=== PATIENT | male | born 1950 | race Caucasian/White ===

== ENCOUNTER 2021-09-29 12:58 | Emergency (ER) | payer MEDICARE, OTHER, SELFPAY ==
--- NOTE | ~2021-09-29 | XR_ITS ---
EXAMINATION: XR SHOULDER, RIGHT CLINICAL INFORMATION: Right shoulder pain status post fall. COMPARISON: None TECHNIQUE: Pre and post reduction views of the right shoulder were obtained. FINDINGS: The first image shows malalignment of the right glenohumeral joint. The post reduction view shows anatomic alignment of the right glenohumeral joint with mild to moderate degenerative changes. No definitive acute fracture is seen. The right ribs appear intact. There is an incidental mass overlying the right upper lobe medially measuring approximate 5.7 x 5.5 cm. XR/XR shoulder RT min 2V IMPRESSION: 1. Right glenohumeral dislocation with return to anatomic alignment status post reduction. Mild to moderate degenerative joint changes are seen in the right shoulder without overt acute fracture. 2. Incidental mass overlying of the right upper lobe. This is concerning for malignancy. Further evaluation with a chest CT scan is recommended.
--- NOTE | 2021-09-29 13:15 | ED_ITS ---
HPI - General Adult General Chief complaint: Fall Stated complaint: fall, ?dislocated shoulder Time Seen by Provider: 09/29/21 13:09 Source: patient, EMS and RN notes reviewed Mode of arrival: EMS Limitations: no limitations History of Present Illness HPI narrative: 71-year-old male with past medical history of throat CA, hypertension, depression, hyperlipidemia is here after sustaining fall. Patient reports that he was walking in the rain when he slipped and fell towards the right side. Patient denies hitting head or any other parts of his body except for his right shoulder. Patient reports to have severe right shoulder pain. 06/29. Patient denies any nausea, vomiting. Denies any presyncope or syncope. Denies any chest pain or palpitations. Patient reports that this was a mechanical fall after slipping in the rain. Patient denies any neurological symptoms. Onset (ago): minute(s) Location: right and upper extremity Radiation: non-radiation Severity: moderate Quality: sharp Pain Consistency: constant Relieving factors: immobilization Exacerbating factors: movement Related Data Previous Rx's Medication Instructions Recorded cyclobenzaprine 10 mg tablet 10 mg PO BID PRN #10 tab 09/29/21 ibuprofen 600 mg tablet 600 mg PO Q8H PRN #20 tab 09/29/21 Allergies Allergy/AdvReac Type Severity Reaction Status Date / Time No Known Allergies Allergy Verified 09/29/21 13:16 Review of Systems Review of Systems: Constitutional : No Weight loss, No Fever, No Chills, No Night Sweats, No Fatigue, No Malaise ENT/Mouth : No Hearing loss, No Ear Pain, No Nasal Congestion, No Sinus Pain, No Hoarseness, No sore throat, No Rhinorrhea, No Swallowing Difficulty Eyes: No Eye Pain, No Swelling, No Redness, No Foreign Body, No Discharge, No Vision Changes Cardiovascular : No Chest Pain, No SOB, No Dyspnea on Exertion, No Orthopnea, No Edema, No Palpitations Respiratory : No Cough, No Sputum, No Wheezing, No Smoke Exposure, No Dyspnea Gastrointestinal : No Nausea, No Vomiting, No Diarrhea, No Constipation, No abdominal Pain, No Hematochezia, No Melena Genitourinary : no irregular bleeding, No Dysuria, No Urinary Frequency, No Hematuria, No Urinary Incontinence, No Urgency, No Flank Pain, No Urinary Flow Changes, No Hesitancy Musculoskeletal : joint pain, right shoulder No Myalgias, Joint Swelling Skin : No Skin Lesions, No rash Neuro : No Weakness, No Numbness, No Paresthesias, No Loss of Consciousness, No Dizziness, No Headache Yes all other systems are reviewed and are negative PMFSH Social History Social History Alcohol intake: current Patient Tobacco Use Status: Never used Tobacco Use of substances other than those prescribed or required for medical reasons: No Advance Directives: No Advance Directives Information Provided: Yes Physical Exam Vital Signs: Vital Signs: Last Vital Signs Temp 98.3 F 09/29/21 13:18 Pulse 58 09/29/21 13:58 Resp 18 09/29/21 13:58 BP 153/55 H 09/29/21 13:58 Pulse Ox 97 09/29/21 13:58 BMI result Body Mass Index 24.0 Const: General: healthy appearing, no acute distress and well developed Nutritional Appearance: well nourished Orientation/consciousness: patient oriented x3 HENMT: Head: Yes normal to inspection, Yes normocephalic and Yes atraumatic Face and sinus: Yes normal facial exam Mouth: Normal oral and palatal mucosa present Throat: Yes posterior oropharynx normal, Yes tonsils normal and Yes uvula midline Eyes: General: appearance normal, both eyes and all related structures Neck: Neck: Yes full ROM, Yes trachea midline and Yes other ( post trache stoma, pink no redness no obstruction) Thyroid: Thyroid normal Resp: Effort & Inspection: normal respiratory effort, able to speak in complete sentences, no tracheal deviation and symmetric chest movement Auscultation: clear to auscultation bilaterally Cardio: Jugular venous distension: no JVD Rate: regular rate Heart sounds: S1 normal heart sound present, S2 normal heart sound present, no gallops and no murmurs GI: Inspection: Yes normal to inspection and No distended Palpation (GI): Soft to palpation, not firm, nontender and No hepatosplenomegaly present Auscultation: normal bowel sounds : General: Yes no CVA tenderness Back/Spine/Pelvis: Back: no CVA tenderness Skin: General skin exam: elasticity normal, turgor normal and dry skin Neuro: General: patient oriented x3 Extrem: Right upper extremity: normal capillary refill and shoulder/upper arm ( right shoulder pain status post fall) Details: tenderness and swelling; No no cyanosis Left upper extremity: normal to inspection, full ROM and normal c apillary refill Psych: Appearance: grossly normal Mental Status: mental status grossly normal Speech and movement: Normal speech and movement present Affect: normal affect Attitude: cooperative Thought process: Normal thought process present Thought content: Normal thought content present Insight: Good insight present (Psych) Judgement: Good judgement present (Psych) Course Course Course Narrative: 71-year-old male with past medical history of throat CA, hypertension, depression, hypercholesteremia is here today after sustaining a fall. Patient reports that this was a mechanical fall, he fell walking outside in the rain. Patient denies hitting head. Reports hitting his right shoulder, denies hitting any other parts of his body. Spinal exam is normal. Patient has visible right shoulder dislocation. Will get an x-ray to rule out fracture. Reevaluation(s) Reevaluation #1: Right shoulder x-ray shows no fracture but dislocation. right shoulder dislocation reduced with assistance of Dr. Brar. Patient was premedicated with morphine 4 mg. I will give him 2 mg of Valium to help relax is muscles. Will repeat post reduction x-ray Reevaluation #2: post reduction x-ray shows reduced dislocation. We will send patient home with pain management and muscle relaxers. Patient is agreeable to this he will follow-up with orthopedics within the week. Patient was instructed to keep his shoulder immobilizer on to reduce the chance for Re dislocating it . Upon x-ray small incidental mass overlying of the right upper lobe, questioning concern for malignancy. Will refer him to his primary care doctor for further investigation possible with chest CT. Patient was in formal this. He is agreeable to being discharged home. Patient will call his sister for ride Procedures Orthopedic Joint Reduction right shoulder: Side: right Joint Reduction Location: shoulder Analgesia: other ( morphine) Shoulder Technique Used (if applicable): scapula manipulation Technique used: direct manipulation Post-reduction neuro exam: intact Post-reduction vascular: intact Post Reduction X-Ray Obtained: Yes Post Reduction X-Ray Results: reduced Splint Applied: Yes Patient Tolerated Procedure: well Medical Decision Making Imaging Data Right shoulder x-ray: Attestation: I personally reviewed and interpreted this imaging study as follows: Radiologist's impression: FINDINGS: The first image shows malalignment of the right glenohumeral joint. The post reduction view shows anatomic alignment of the right glenohumeral joint with mild to moderate degenerative changes. No definitive acute fracture is seen. The right ribs appear intact. There is an incidental mass overlying the right upper lobe medially measuring approximate 5.7 x 5.5 cm. XR/XR shoulder RT min 2V IMPRESSION: 1. Right glenohumeral dislocation with return to anatomic alignment status post reduction. Mild to moderate degenerative joint changes are seen in the right shoulder without overt acute fracture. 2. Incidental mass overlying of the right upper lobe. This is concerning for malignancy. Further evaluation with a chest CT scan is recommended. Discharge Plan Discharge Clinical Impression: Dislocation of shoulder region Qualifiers: Encounter type: initial encounter Laterality: right Qualified Code(s): S43.004A - Unspecified dislocation of right shoulder joint, initial encounter Patient Disposition: Home, Self-Care Instructions: Shoulder Dislocation (ED), Closed Reduction (ED), Shoulder Immobilizer (ED) Additional Instructions: you were seen here today after you slipped and fell onto your right shoulder. X-ray show no fracture however your shoulder was dislocated. With manipulation your right shoulder was put back in place. Repeat x-ray showed no dislocation. However there was the incidental finding of nodule in the right upper lung that needs to be further investigated with CT scan of the long talk concerning for malignancy. Please follow-up with your primary care provider within 1 week. You will be referred to orthopedic surgeons for further care of your shoulder. Please make sure you keep your sling on to reduce the chance of dislocating it again. You will be given pain medication to reduce inflammation as well as pain to relaxer muscles. Please make sure you do not drink alcohol or drive while taking this medication. You may return to her emergency department if you experience any concerning symptoms. Prescriptions: New cyclobenzaprine 10 mg tablet 10 mg PO BID PRN (Reason: muscle spasm) Qty: 10 RF: 0 ibuprofen 600 mg tablet 600 mg PO Q8H PRN (Reason: pain) Qty: 20 RF: 0 Referrals: Luis Angel Schultz MD [Primary Care Provider] - 1 week ( Incidental finding on patient's chest x-ray right upper lobe nodule. Will need CT scan of the chest to further investigate) Patricia Shields MD [Physician] - 1 week ( right shoulder dislocation, reduced sent home with sling)
[2021-09-29] MEDS: Morphine Sulfate 4 MG/ML CARTRIDGE IVPUSH (13:16)
[2021-09-29 13:18] VITALS: BP 108/53; BP 128/55; PULSE 64; PULSE 78; RESP 24; TEMP 36.8; O2SAT 97; O2SAT 98; BMI 24.0
[2021-09-29] MEDS: diazePAM 2 MG TABLET PO (13:57)
--- NOTE | 2021-09-29 13:57 | PC.NURSE ---
pt was reduced shortly after arrival to [facility]. sling in place immediatly. no issues since reports feeling better. palpable radial pulse following proceedure.
[2021-09-29 13:58] VITALS: BP 153/55; PULSE 58; RESP 18; O2SAT 97
== END 2021-09-29 15:20 | disposition home or self-care (01) ==
PROVIDERS: Emergency Provider Emergency Medicine; PCP Internal Medicine
DX: S43.004A Unspecified dislocation of right shoulder joint, initial encounter (principal); W00.0XXA Fall on same level due to ice and snow, initial encounter; R91.8 Other nonspecific abnormal finding of lung field; Y93.01 Activity, walking, marching and hiking; Y92.480 Sidewalk as the place of occurrence of the external cause; Y99.9 Unspecified external cause status
CPT/HCPCS: 23650; 73030; 96374; 99284; J2270